=== PATIENT | female | born 1980 ===

== ENCOUNTER → 2024-07-02 | Outpatient (CLI) | payer BC, OTHER | LOC: M SOG 08:02 | PROVIDERS: ATTEND Physician Assistant | DX: M79.644 Pain in right finger(s) (principal); S62.622D Displaced fracture of middle phalanx of right middle finger, subsequent encounter for fracture with routine healing ==

== ENCOUNTER → 2024-08-06 | Outpatient (CLI) | payer BC, OTHER | LOC: M SOG 07:51 | PROVIDERS: ATTEND Physician Assistant | DX: S62.602D Fracture of unspecified phalanx of right middle finger, subsequent encounter for fracture with routine healing (principal) ==